=== PATIENT | female | born 1960 | race African-American/Black ===

== ENCOUNTER 2019-11-26 13:15 | Inpatient (IN) | payer OTHER, MEDICAID ==
[~2019-11-26] VITALS: Ht 165.1 cm; Wt 143.7 kg
[~2019-11-26 13:15] MED LIST: CAR3125T PO; ENAL10TA2 PO; FLUT250M2 IN; FURO40TA4 PO; MONT10TA23 PO; NIFEDICAL PO; POTA8TAB2 PO; RABE20TA5 PO
[2019-11-26] MEDS ORDERED: methylPREDNISolone SOD SUCC 125 MG/2 ML VL IV ONE (14:00)
[2019-11-26 14:44] LABS: Basophils # (auto) 0.1 uL; Eosinophils # (auto) 0.1 uL; Eosinophils % (auto) 1.5 % (0.0-7.0); Monocytes # (auto) 0.5 uL; Neutrophils # (auto) 6.8 uL; Nucleated Red Blood Cells % 0.1 %
[2019-11-26 14:45] LABS: Basophils % (auto) 0.7 % (0.0-2.0); Hematocrit 44.1 % (36.0-46.0); Hemoglobin 13.9 g/dL (12.2-16.2); Lymphocytes # (auto) 1.7 uL; Lymphocytes % (auto) 18.5 % (10.0-50.0); Mean Corpuscular Hemoglobin 24.9 pg (28.0-32.0); Mean Corpuscular Hgb Conc. 31.4 g/dL (32.0-36.0); Mean Corpuscular Volume 79.3 fL (80.0-100.0); Monocytes % (auto) 5.6 % (0.0-12.0); Neutrophils % (auto) 73.7 % (37.0-80.0); Platelet Count (auto) 331 10^3/uL (140-450); Red Blood Cells 5.56 10^6/uL (4.0-5.20); Red Cell Distribution Width 19.8 % (11.8-14.3); White Blood Cell 9.3 10^3/uL (4.4-10.8)
[2019-11-26 15:06] LABS: Albumin 3.3 g/dL (3.4-5.0); BUN/Creatinine Ratio 8.9; Calcium 8.5 mg/dL (8.5-10.1); Potassium 3.5 mmol/L (3.5-5.1)
[2019-11-26 15:10] LABS: Bilirubin, Total 0.5 mg/dL (0.2-1.0); Total Protein 8.2 g/dL (6.4-8.2)
[2019-11-26] MEDS ORDERED: FUROSEMIDE 40 MG/4 ML VIAL IV ONE (15:30)
[2019-11-26] MEDS ORDERED: TEMAZEPAM 15 MG CAP PO PRN (21:00)
[2019-11-26] MEDS ORDERED: ONDANSETRON HCL 4 MG/2 ML VIAL IV PRN (21:00)
[2019-11-26] MEDS ORDERED: ACETAMINOPHEN 325 MG TAB PO PRN (21:00)
[2019-11-26] MEDS ORDERED: MORPHINE SULF INJ 2 MG/ML SYRINGE 1ML IV PRN (21:45)
[2019-11-26] MEDS ORDERED: NITROGLYCERIN 0.4 MG SL TAB SL PRN (21:45)
[2019-11-26] MEDS: FAMOTIDINE 20 MG TAB PO SCH (23:00)
[2019-11-26] MEDS: CARVEDILOL 3.125 MG TAB PO SCH (23:00)
[2019-11-26] MEDS: MONTELUKAST SODIUM 10 MG TAB PO SCH (23:00)
[2019-11-27 00:10] VITALS: BP 142/73
[2019-11-27] MEDS ORDERED: TIOTCAP IN (01:17)
[2019-11-27] MEDS ORDERED: FURO40TA4 PO (01:17)
[2019-11-27] MEDS ORDERED: ALBUAER3 IN (01:17)
[2019-11-27] MEDS ORDERED: ATO40T PO (01:17)
[2019-11-27] MEDS ORDERED: ASPI-404 PO (01:17)
[2019-11-27] MEDS ORDERED: METF-370 PO (01:17)
[2019-11-27] MEDS ORDERED: POTA1TAB61 PO (01:17)
[2019-11-27] MEDS ORDERED: OMEP-335 PO (01:17)
[2019-11-27] MEDS ORDERED: METO25TA5 PO (01:17)
[2019-11-27] MEDS ORDERED: CHOL20007 PO (01:17)
[2019-11-27] MEDS ORDERED: NIFE1TAB30 PO (01:17)
[2019-11-27 04:35] VITALS: BP 138/71
[2019-11-27] MEDS: FUROSEMIDE 20 MG/2 ML VIAL IV SCH ×2 (05:40→09:55)
[2019-11-27 06:28] LABS: Basophils # (auto) 0 uL; Basophils % (auto) 0.1 % (0.0-2.0); Eosinophils # (auto) 0 uL; Hemoglobin 12.6 g/dL (12.2-16.2); Lymphocytes # (auto) 0.7 uL; Monocytes # (auto) 0.1 uL; Neutrophils # (auto) 8.2 uL
[2019-11-27 06:30] LABS: Hematocrit 40.1 % (36.0-46.0); Mean Corpuscular Hemoglobin 24.9 pg (28.0-32.0); Mean Corpuscular Hgb Conc. 31.4 g/dL (32.0-36.0); Mean Corpuscular Volume 79.3 fL (80.0-100.0); Monocytes % (auto) 0.7 % (0.0-12.0); Neutrophils % (auto) 91.2 % (37.0-80.0); Nucleated Red Blood Cells % 0.1 %; Platelet Count (auto) 327 10^3/uL (140-450); Red Blood Cells 5.06 10^6/uL (4.0-5.20); Red Cell Distribution Width 18.9 % (11.8-14.3)
[2019-11-27 06:47] LABS: BUN/Creatinine Ratio 12.2; Potassium 4.5 mmol/L (3.5-5.1)
[2019-11-27 09:00] VITALS: BP 126/64
[2019-11-27] MEDS: CARVEDILOL 3.125 MG TAB PO SCH ×2 (09:56→21:53)
[2019-11-27] MEDS: MONTELUKAST SODIUM 10 MG TAB PO SCH (09:56)
[2019-11-27] MEDS: FAMOTIDINE 20 MG TAB PO SCH ×2 (09:56→21:55)
[2019-11-27] MEDS: ENALAPRIL MALEATE 10 MG TAB PO SCH (09:57)
[2019-11-27] MEDS ORDERED: DEXTROSE (50%) 50ML SYRG IV PRN (12:00)
[2019-11-27 13:00] VITALS: BP 126/62
[2019-11-27 17:00] VITALS: BP 143/71
[2019-11-27] MEDS ORDERED: OPTISON 3ml Vial for INJ IV ONE (17:23)
[2019-11-27] MEDS: ACCU-CHEK COMFORT CURVE STRIP VI SCH ×2 (18:53→21:55)
[2019-11-27] MEDS: InsuLIN REG 1unit/0.01ml Soln (100units/ml) SC SCH ×2 (18:54→21:55)
[2019-11-27 21:03] VITALS: BP 139/76
[2019-11-27] MEDS: FUROSEMIDE 40 MG/4 ML VIAL IV SCH (21:55)
[2019-11-28 04:31] VITALS: BP 131/71
[2019-11-28] MEDS: FUROSEMIDE 40 MG/4 ML VIAL IV SCH ×2 (05:48→18:42)
[2019-11-28 06:25] LABS: Calcium 8.7 mg/dL (8.5-10.1); Potassium 3.7 mmol/L (3.5-5.1)
[2019-11-28 06:27] LABS: BUN/Creatinine Ratio 17.2
[2019-11-28] MEDS: ACCU-CHEK COMFORT CURVE STRIP VI SCH ×4 (06:54→21:53)
[2019-11-28] MEDS: InsuLIN REG 1unit/0.01ml Soln (100units/ml) SC SCH ×4 (06:55→22:00)
[2019-11-28 08:58] VITALS: BP 130/75
[2019-11-28] MEDS: FAMOTIDINE 20 MG TAB PO SCH ×2 (10:21→21:53)
[2019-11-28] MEDS: ENALAPRIL MALEATE 10 MG TAB PO SCH (10:22)
[2019-11-28] MEDS: CARVEDILOL 3.125 MG TAB PO SCH ×2 (10:22→21:52)
[2019-11-28 13:30] VITALS: BP 128/72
[2019-11-28 17:00] VITALS: BP 114/59
[2019-11-28 20:15] VITALS: BP 132/67
[2019-11-28 21:50] VITALS: BP 132/61
[2019-11-28] MEDS: MONTELUKAST SODIUM 10 MG TAB PO SCH (21:53)
[2019-11-29] VITALS (9 sets, daily range): BP systolic 125–151; BP diastolic 64–73
[2019-11-29 03:51] LABS: Urine Bacteria FEW /hpf (None Seen); Urine Blood Negative /uL (Negative); Urine Hyaline Cast FEW /lpf (0 - 2); Urine Mucus FEW (None Seen); Urine Specific Gravity 1.011 (1.001-1.035); Urine WBC 1 /hpf (0 - 5)
[2019-11-29 05:41] LABS: Basophils # (auto) 0 uL; Basophils % (auto) 0.5 % (0.0-2.0); Eosinophils # (auto) 0.2 uL; White Blood Cell 8.5 10^3/uL (4.4-10.8)
[2019-11-29 05:44] LABS: Hematocrit 38.4 % (36.0-46.0); Hemoglobin 11.9 g/dL (12.2-16.2); Lymphocytes % (auto) 24.1 % (10.0-50.0); Mean Corpuscular Hemoglobin 24.8 pg (28.0-32.0); Mean Corpuscular Hgb Conc. 31.1 g/dL (32.0-36.0); Mean Corpuscular Volume 79.8 fL (80.0-100.0); Monocytes # (auto) 0.5 uL; Monocytes % (auto) 6.2 % (0.0-12.0); Neutrophils # (auto) 5.7 uL; Neutrophils % (auto) 67.2 % (37.0-80.0); Platelet Count (auto) 307 10^3/uL (140-450); Red Blood Cells 4.81 10^6/uL (4.0-5.20); Red Cell Distribution Width 19.3 % (11.8-14.3)
[2019-11-29 06:05] LABS: BUN/Creatinine Ratio 20.4; Calcium 8.6 mg/dL (8.5-10.1); Potassium 3.5 mmol/L (3.5-5.1)
[2019-11-29] MEDS: FUROSEMIDE 40 MG/4 ML VIAL IV SCH ×2 (06:12→17:58)
[2019-11-29] MEDS: ACCU-CHEK COMFORT CURVE STRIP VI SCH ×4 (06:13→21:49)
[2019-11-29] MEDS: InsuLIN REG 1unit/0.01ml Soln (100units/ml) SC SCH ×4 (06:13→21:49)
[2019-11-29] MEDS: CARVEDILOL 3.125 MG TAB PO SCH ×2 (09:37→21:49)
[2019-11-29] MEDS: ENALAPRIL MALEATE 10 MG TAB PO SCH (09:38)
[2019-11-29] MEDS: FAMOTIDINE 20 MG TAB PO SCH ×2 (09:39→22:10)
[2019-11-29] MEDS ORDERED: CEPHALEXIN 250 MG CAP PO SCH (12:00)
[2019-11-29] MEDS: AMOXICILLIN/CLAVUL 875 MG TAB PO SCH ×2 (13:04→22:10)
[2019-11-29] MEDS: MONTELUKAST SODIUM 10 MG TAB PO SCH (22:10)
[2019-11-30 05:00] VITALS: BP 143/60
[2019-11-30] MEDS: FUROSEMIDE 40 MG/4 ML VIAL IV SCH ×2 (05:44→19:20)
[2019-11-30 06:48] LABS: Basophils # (auto) 0.1 uL; Eosinophils # (auto) 0.2 uL; Hemoglobin 12.9 g/dL (12.2-16.2); Monocytes # (auto) 0.6 uL; Neutrophils # (auto) 6.2 uL; Platelet Count (auto) 331 10^3/uL (140-450); White Blood Cell 9.1 10^3/uL (4.4-10.8)
[2019-11-30 06:51] LABS: Eosinophils % (auto) 2.3 % (0.0-7.0); Hematocrit 42.3 % (36.0-46.0); Lymphocytes % (auto) 21.9 % (10.0-50.0); Mean Corpuscular Hemoglobin 24.3 pg (28.0-32.0); Mean Corpuscular Hgb Conc. 30.5 g/dL (32.0-36.0); Mean Corpuscular Volume 79.8 fL (80.0-100.0); Monocytes % (auto) 6.7 % (0.0-12.0); Neutrophils % (auto) 68.1 % (37.0-80.0); Nucleated Red Blood Cells % 0.1 %; Red Cell Distribution Width 19.1 % (11.8-14.3)
[2019-11-30] MEDS: InsuLIN REG 1unit/0.01ml Soln (100units/ml) SC SCH ×4 (06:51→21:56)
[2019-11-30] MEDS: ACCU-CHEK COMFORT CURVE STRIP VI SCH ×4 (06:51→21:56)
[2019-11-30 07:11] LABS: Calcium 8.9 mg/dL (8.5-10.1); Potassium 3.5 mmol/L (3.5-5.1)
[2019-11-30 07:14] LABS: BUN/Creatinine Ratio 20.9
[2019-11-30 08:00] VITALS: BP 138/69
[2019-11-30 08:53] VITALS: BP 138/69
[2019-11-30] MEDS: ENALAPRIL MALEATE 10 MG TAB PO SCH (09:27)
[2019-11-30] MEDS: AMOXICILLIN/CLAVUL 875 MG TAB PO SCH ×2 (09:28→21:50)
[2019-11-30] MEDS: CARVEDILOL 3.125 MG TAB PO SCH ×2 (09:28→21:55)
[2019-11-30] MEDS: FAMOTIDINE 20 MG TAB PO SCH ×2 (09:28→21:50)
[2019-11-30 12:30] VITALS: BP 117/63
[2019-11-30 15:48] VITALS: BP 107/66
[2019-11-30] MEDS: MONTELUKAST SODIUM 10 MG TAB PO SCH (21:50)
[2019-11-30 22:00] VITALS: BP 143/65
[2019-12-01 05:00] VITALS: BP 142/81
[2019-12-01] MEDS: ACCU-CHEK COMFORT CURVE STRIP VI SCH ×2 (06:32→11:30)
[2019-12-01] MEDS: InsuLIN REG 1unit/0.01ml Soln (100units/ml) SC SCH ×2 (06:33→11:30)
[2019-12-01] MEDS: FUROSEMIDE 40 MG/4 ML VIAL IV SCH (06:34)
[2019-12-01 08:00] VITALS: BP 126/77
[2019-12-01 08:55] VITALS: BP 126/77
[2019-12-01] MEDS: AMOXICILLIN/CLAVUL 875 MG TAB PO SCH (10:40)
[2019-12-01] MEDS: ENALAPRIL MALEATE 10 MG TAB PO SCH (10:43)
[2019-12-01] MEDS: CARVEDILOL 3.125 MG TAB PO SCH (10:44)
[2019-12-01] MEDS: FAMOTIDINE 20 MG TAB PO SCH (10:45)
[2019-12-01 13:00] VITALS: BP 134/64
[2019-12-01 17:00] VITALS: BP 122/52
== END 2019-12-01 18:15 | disposition home or self-care (01) | DRG 291 ==
LOC: ER 13:15 → TELE 13:16 → TELE-CENTR 23:47
PROVIDERS: ADMIT Nurse Practitioner; ATTEND Internal Medicine
DX: I13.0 Hypertensive heart and chronic kidney disease with heart failure and stage 1 through stage 4 chronic kidney disease, or unspecified chronic kidney disease (principal); I50.43 Acute on chronic combined systolic (congestive) and diastolic (congestive) heart failure; N17.0 Acute kidney failure with tubular necrosis; J96.01 Acute respiratory failure with hypoxia; E66.2 Morbid (severe) obesity with alveolar hypoventilation; N39.0 Urinary tract infection, site not specified; J44.9 Chronic obstructive pulmonary disease, unspecified; E11.22 Type 2 diabetes mellitus with diabetic chronic kidney disease; N18.9 Chronic kidney disease, unspecified; E78.5 Hyperlipidemia, unspecified; I25.10 Atherosclerotic heart disease of native coronary artery without angina pectoris; Z83.3 Family history of diabetes mellitus; Z90.49 Acquired absence of other specified parts of digestive tract
CPT/HCPCS: 36415; 36600; 71045; 71046; 80048; 80053; 81001; 82805; 82962; 83036; 83880; 84443; 84484; 85025; 87086; 93005; 93306; 96374; 96375; G0378; J1815; Q9956